=== PATIENT | female | born 1995 | race Caucasian/White ===

== ENCOUNTER 2018-03-19 00:38 | Emergency (ER) | payer OTHER ==
[~2018-03-19] VITALS: Ht 162.6 cm; Wt 91.6 kg
[~2018-03-19 00:38] MED LIST: CRYSELLE1 EACH PO; MIRALAX17 GM PO; MOTRIN800 MG PO; NORCO 10-325 T1 EACH PO; NORCO 5-325 TA1 EACH PO; RANITIDINE HCL150 MG PO; SEPTRA DS TABL1 EACH PO; VITAMIN B-225 MG PO
[2018-03-19] MEDS ORDERED: IBUPROFEN200 M1 PO (00:54)
[2018-03-19] MEDS ORDERED: PROBIOTIC1 EAC5 PO (00:54)
[2018-03-19] MEDS ORDERED: NORCO 5-325 TA1 EACH PO (02:43)
[2018-03-19] MEDS ORDERED: ZOFRAN ODT4 MG PO (02:43)
== END 2018-03-19 03:15 | disposition home or self-care (01) ==
LOC: ED 00:38
DX: N13.2 Hydronephrosis with renal and ureteral calculous obstruction (principal); I10 Essential (primary) hypertension; Z79.899 Other long term (current) drug therapy; Z79.1 Long term (current) use of non-steroidal anti-inflammatories (NSAID)
CPT/HCPCS: 74176; 80053; 81001; 83690; 84703; 85025; 96374; 96375; 99284; J1885; J2405

== ENCOUNTER 2023-10-02 16:13 | Emergency (ER) | payer OTHER ==
[~2023-10-02] VITALS: Ht 165.1 cm; Wt 74.5 kg
[~2023-10-02 16:13] MED LIST changes: +IBUPROFEN200 M1 PO; +PROBIOTIC1 EAC5 PO; +ZOFRAN ODT4 MG PO
--- OUTSIDE RECORDS SUMMARY | 2023-10-02 16:17 | XMS ---
PreManage Notification: LING PAIGE Security Slip[place] Events No recent Security Events currently on file CRITERIA MET - PDMP CARE PROVIDERS -, [place]- Dentist: [facility] PHONE: [phone] Shraddha has no Care Guidelines for this patient. E.Shaheed VISIT COUNT (12 MO.) 1 L[facility]U Arroyo TOTAL 1 NOTE: Visits indicate total known visits. ED/UCC VISIT TRACKING (12 MO.) 10/02/2023 16:14 [facility] OR TYPE: Emergency COMPLAINT: - ABDOMINAL PAIN INPATIENT VISIT TRACKING (12 MO.) No inpatient visits to display in this time frame [id number]
[2023-10-02] MEDS ORDERED: NEURONTIN100 MG PO (16:49)
[2023-10-02] MEDS ORDERED: METHOCARBAMOL500 MG PO (16:49)
[2023-10-02] MEDS ORDERED: ACID REDUCER10 MG PO (16:49)
[2023-10-02 18:41] LABS: BILIRUBIN, URINE NEGATIVE (negative); BLOOD/HGB, URINE NEGATIVE (Negative); KETONE, URINE NEGATIVE (Negative); LEUK ESTERASE, URINE NEGATIVE (negative); NITRITE, URINE NEGATIVE (negative); PH, URINE 5.5 (5-7)
[2023-10-02 18:46] LABS: BACTERIA, URINE NONE SEEN /hpf (negative); CASTS, URINE NONE SEEN \\lpf; COLLECTION TYPE, URINE CLEAN CATCH; CRYSTALS, URINE NONE SEEN (0-1+); EPITHELIAL CELLS, URINE NONE SEEN /lpf (0-1+); RED BLOOD CELLS, URINE 0-1 /hpf (0-5); REFLEX CULTURE, URINE No (No); WHITE BLOOD CELLS, URINE 0-1 /HPF (0-5)
[2023-10-02 21:19] VITALS: BP 129/89
== END 2023-10-02 21:19 | disposition home or self-care (01) ==
LOC: ED 16:13
PROVIDERS: Emergency Medicine
DX: R10.31 Right lower quadrant pain (principal); I10 Essential (primary) hypertension; Z79.899 Other long term (current) drug therapy
CPT/HCPCS: 74022; 74177; 76856; 81001; 84703; J1885; Q9967

== ENCOUNTER 2024-08-24 18:27 | Emergency (ER) | payer OTHER ==
[~2024-08-24] VITALS: Ht 165.1 cm; Wt 88.5 kg
[~2024-08-24 18:27] MED LIST changes: +ACID REDUCER10 MG PO; +METHOCARBAMOL500 MG PO; +NEURONTIN100 MG PO
[2024-08-24 20:32] LABS: BASOPHILS 0.6 % (0-2); EOSINOPHILS 0.9 % (0-6); HEMATOCRIT 41.9 % (35.0-50.0); HEMOGLOBIN 13.9 g/dL (12.0-18.0); LYMPHOCYTES 19.6 % (24-44); MCH 28.6 (27-36); MCHC 33.3 g/dl (30-36); MCV 85.8 fl (81-99); MONOCYTES 6.8 % (0-12); NEUTROPHILS 72.1 % (39-80); PLATELET COUNT 313 K/uL (140-440); RBC 4.88 M/ul (4.3-5.7); RDW 13.5 (10.5-15.0)
[2024-08-24 20:50] LABS: ALBUMIN 4.3 g/dL (3.4-5.0); ALBUMIN/GLOBULIN RATIO 1.05 (1.1-2.4); ANION GAP 16.8 (7-21); BILIRUBIN, TOTAL 0.5 ng/dL (0.2-1.0); BUN/CREATININE RATIO 12.98 (6.0-28.6); CALCIUM 9.6 mg/dL (8.5-10.1); CREATININE, SERUM 0.77 mg/dL (0.55-1.02); MAGNESIUM 2.2 mg/dL (1.8-2.4); POTASSIUM 3.8 mmol/L (3.5-5.1); PROTEIN, TOTAL 8.4 g/dL (6.4-8.2)
[2024-08-24 21:30] LABS: BILIRUBIN, URINE NEGATIVE (negative); BLOOD/HGB, URINE NEGATIVE (Negative); KETONE, URINE NEGATIVE (Negative); LEUK ESTERASE, URINE NEGATIVE (negative); NITRITE, URINE NEGATIVE (negative)
[2024-08-24 21:35] LABS: INFLUENZA B NAA NEGATIVE (NEGATIVE); RESPIRATORY SYNCYTIAL VIR NAA NEGATIVE (NEGATIVE)
[2024-08-24] MEDS ORDERED: methylPREDNISolone 4 MG HOME.PACK PO ONE (22:15)
[2024-08-24 22:24] VITALS: BP 139/92
--- NOTE | 2024-08-25 08:08 | EKG ---
[facility] [address] [facility] [place], [place] [address] Signed Normal sinus rhythm with sinus arrhythmia Minimal voltage criteria for LVH, may be normal variant ( R in aVL ) Borderline ECG No previous ECGs available Confirmed by Brenton Olivia MD ([id number]) on 08/25/2024 8:07:53 AM Electronically Signed By: BRENTON OLIVIA MD 08/25/24 0808 PATIENT NAME: LING PAIGE Electrocardiogram DATE OF : [birth year] PHYSICIAN: BRENTON OLIVIA MD REPORT #: [id number] REPORT IS CONFIDENTIAL AND NOT TO BE RELEASED WITHOUT AUTHORIZATION
== END 2024-08-24 22:25 | disposition home or self-care (01) ==
LOC: ED 18:27
PROVIDERS: Family Medicine
DX: M79.18 Myalgia, other site (principal); R42 Dizziness and giddiness; K21.9 Gastro-esophageal reflux disease without esophagitis; K58.9 Irritable bowel syndrome, unspecified; Z79.899 Other long term (current) drug therapy
CPT/HCPCS: 36415; 71045; 80053; 81003; 83735; 84484; 84703; 85025; 86140; 87502; 93005; 93010; 99284-25; U0002

== ENCOUNTER 2024-12-26 07:19 | Emergency (ER) | payer OTHER ==
[~2024-12-26] VITALS: Ht 165.1 cm; Wt 84.8 kg
[2024-12-26] MEDS ORDERED: LORATADINE 10 MG TAB PO ONE (07:45)
[2024-12-26] MEDS ORDERED: predniSONE 20 MG TAB PO ONE (07:45)
[2024-12-26] MEDS ORDERED: DULOXETINE HCL20 MG PO (08:44)
[2024-12-26] MEDS ORDERED: GABAPENTIN100 MG PO (08:44)
[2024-12-26] MEDS ORDERED: FLUTICASONE PRO16 GM NAS (08:44)
[2024-12-26] MEDS ORDERED: SUCRALFATE1 GM PO (08:45)
[2024-12-26] MEDS ORDERED: TRAMADOL HCL50 MG PO (08:45)
[2024-12-26] MEDS ORDERED: CYCLOBENZAPRINE10 MG PO (08:45)
[2024-12-26] MEDS ORDERED: PREDNISONE20 MG PO (09:07)
[2024-12-26 09:15] VITALS: BP 128/92
== END 2024-12-26 09:15 | disposition home or self-care (01) ==
LOC: ED 07:19
DX: T78.3XXA Angioneurotic edema, initial encounter (principal); Z79.899 Other long term (current) drug therapy
CPT/HCPCS: 99283; J7512